=== PATIENT | male | born 1975 | race Two or more races ===

== ENCOUNTER 2016-06-15 17:36 | Emergency (ER) | payer SELFPAY ==
[~2016-06-15] VITALS: Ht 162.6 cm; Wt 90.7 kg
[2016-06-15 18:09] VITALS: BP 118/79
--- NOTE | 2016-06-15 21:09 | PHYS DOC ---
Past Medical History Past Medical History: Diverticulosis Past Surgical History: Other Additional Past Surgical Histo: I&D and fistulotomy Alcohol Use: Occasionally Drug Use: None Adult General Chief Complaint Chief Complaint: ABSCESS HPI HPI Patient is a 41 year old male who presents at the request of his primary care doctor seeking a general surgery evaluation for possible persistent perirectal abscess with fistula. He has mild rectal pain that is constant and persistent for > 1 month. At the beginning of April, he had rectal pain and his primary care doctor, Dr. Rex Treviño, removed a fish bone by anoscopy. A few days later, he had persistent symptoms and went to [facility] and had outpatient procedure of I&D and fistulotomy. He has been on antibiotics during this time; currently on flagyl per PCP. He followed up with a general surgery clinic at the beginning of this month and had repeat anoscopy and the surgeon stated he needed a procedure. He was unable to afford this procedure, so he was sent here for possible other surgical resources. He denies fever or chills, bloody stools, pain with eating, decreased appetite, dysuria, hematuria , back pain. He presents here with a letter from his primary care doctor asking that he be evaluated by general surgeon. There is also an interpretation for CT abdomen and pelvis with IV, oral, and rectal contrast that was performed on 06/12/16 showing no signs of fistula or abscess or acute findings. He also presents with laboratory evaluation results dated 06/12/16 showing no significant abnormalities. Review of Systems Review of Systems Constitutional: Denies fever or chills [] Eyes: Denies change in visual acuity, redness, or eye pain [] HENT: Denies nasal congestion or sore throat [] Respiratory: Denies cough or shortness of breath [] Cardiovascular: No additional information not addressed in HPI [] GI: Denies abdominal pain, nausea, vomiting, bloody stools or diarrhea [] : Denies dysuria or hematuria [] Musculoskeletal: Denies back pain or joint pain [] Integument: Denies rash or skin lesions [] Neurologic: Denies headache, focal weakness or sensory changes [] Endocrine: Denies polyuria or polydipsia [] Allergies Allergies Allergies Coded Allergies Type Severity Reaction Last Updated Verified No Known Drug Allergies 06/15/16 No Physical Exam Physical Exam Constitutional: Well developed, well nourished, no acute distress, non-toxic appearance. [] HENT: Normocephalic, atraumatic, bilateral external ears normal, oropharynx moist, nose normal. [] Eyes: PERRLA, EOMI. [] Neck: Normal range of motion, supple. [] Cardiovascular:Heart rate regular rhythm [] Lungs & Thorax: Bilateral breath sounds clear to auscultation [] Abdomen: Bowel sounds normal, soft, no tenderness. Rectal exam refused. [] Skin: Warm, dry, no erythema, no rash. [] Back: Normal ROM. [] Extremities: Ambulatory with a steady gait, ROM intact. [] Neurologic: Alert and oriented X 3, normal motor function, normal sensory function, no focal deficits noted. [] Psychologic: Affect normal, judgement normal, mood normal. [] Current Patient Data Vital Signs Vital Signs Date Time Temp Pulse Resp B/P Pulse Ox O2 Delivery O2 Flow Rate FiO2 06/15/16 18:09 97.9 92 16 118/79 98 Room Air 97.9 Course & Med Decision Making Course & Med Decision Making Pertinent Labs and Imaging studies reviewed. (See chart for details) Had long discussion with him via the blue phone German language line. Discussed that given his symptoms, I would need to likely repeat laboratory and imaging evaluation as well as rectal exam. He does not want any of that performed and wants to see a general surgeon as he was told this would happen by his primary care doctor. Patient then called his primary care doctor via cell phone. I spoke with Dr. Rex Treviño myself via the patient's cell phone. I discussed with recent negative imaging, he is likely being appropriately treated with metronidazole and needs to follow-up with general surgery outpatient. I discussed he will be provided with the general surgery clinic referral, but we cannot have an emergent general surgery consult for a nonemergent condition. Dr. Treviño and the patient understood and agreed with this plan. He was discharged without further workup. Dragon Disclaimer Dragon Disclaimer This electronic medical record was generated, in whole or in part, using a voice recognition dictation system. Departure Departure Impression: Primary Impression: Rectal or anal pain Disposition: 01 HOME, SELF-CARE Condition: STABLE Referrals: JALIL LINDA MD Patient Instructions: Medical Screening Exam Additional Instructions: Continue your current medications. Follow up with your primary care doctor in surgery clinic. Please call surgery clinic for appointment. Return for any concerns. Fabiana SOLOMON MD Jun 15, 2016 21:09
== END 2016-06-15 21:25 | disposition home or self-care (01) ==
LOC: ER 17:36
DX: K62.89 Other specified diseases of anus and rectum (principal); Z98.890 Other specified postprocedural states; Z87.19 Personal history of other diseases of the digestive system
CPT/HCPCS: 99281